=== PATIENT | female | born 1965 | race Caucasian/White ===

== ENCOUNTER 2016-12-15 23:52 | Emergency (ER) | payer OTHER ==
[~2016-12-15] VITALS: Ht 165.1 cm; Wt 68.0 kg
--- NOTE | 2016-12-16 00:32 | ED NECK/BACK PAIN COMPLAINT ---
History of Present Illness General Chief Complaint: General Adult Stated Complaint: RIGHT SIDE BACK PAIN PER PT Vital Signs & Intake/Output Vital Signs & Intake/Output Vital Signs Date Time Temp Pulse Resp B/P Pulse O2 O2 Flow FiO2 Ox Delivery Rate 12/16 34 Room Air 12/17 31 96.5 117 20 178/101 95 Room Air Past History Travel History Traveled to [place] past 21 day No Progress Plan of Care: Orders Procedure Date/time Status THROAT CULTURE W/QUICK STREP 12/17 39 Active URINALYSIS 12/17 39 Active Departure Departure Condition: Stable Referrals: UNKNOWN (PCP/Family) Departure Forms: Customer Survey General Discharge Information
--- NOTE | 2016-12-16 00:42 | ED NECK/BACK PAIN COMPLAINT ---
History of Present Illness General Chief Complaint: General Adult Stated Complaint: RIGHT SIDE BACK PAIN PER PT Source: patient Exam Limitations: no limitations Vital Signs & Intake/Output Vital Signs & Intake/Output Vital Signs Date Time Temp Pulse Resp B/P Pulse O2 O2 Flow FiO2 Ox Delivery Rate 12/16 0114 152/79 12/16 0035 Room Air 12/16 003 96.5 117 20 178/101 95 Room Air Triage Note: PT TO TRIAGE C/O URINARY FREQ AND R FLANK PAIN. PT ALSO C/O PAINFUL GLANDS. Triage Nurses Notes Reviewed? yes Onset: Abrupt Duration: day(s): (few) Timing: recent history Quality/Severity: mild Location: NECK, FLANK PAIN Associated Symptoms: abdominal pain HPI: 51 year old female presents to the ER with multiple complaints. SHe reports throat pain, neck swelling, urinary frequency, flank pain, chills and subjective temperatures. Denies chest pain. She states recently she had blood work done by her PCP and her medications were adjusted. She visits her PCP frequently. Today she was at the gym even though she wasn't feeling well over the last few days but states that she was worried about her glands being swollen. Past History Travel History Traveled to [place] past 21 day No Medical History Any Pertinent Medical History? see below for history Endocrine: hyperthyroidism Surgical History Surgical History: non-contributory Psychosocial History What is your primary language Bengali Tobacco Use: Never used ETOH Use: occasional use Family History Hx Contributory? No Review of Systems Review of Systems Constitutional: Reports: fever (SUBJECTIVE). Denies: chills. Eyes: Denies: blurred vision. Ears, Nose, Throat, Mouth: Denies: ear discharge, mouth pain. Respiratory: Denies: cough, short of breath. Cardiovascular: Denies: chest pain. Gastrointestinal/Abdominal: Reports: abdominal pain. Musculoskeletal: Reports: neck pain (SWELLING). Neurological/Psychological: Reports: anxiety. Denies: headache. Physical Exam Physical Exam General Appearance: well developed/nourished, alert, awake Head: atraumatic, normal appearance Eyes: Bilateral: normal appearance, PERRL, EOMI. Ears, Nose, Throat, Mouth: hearing grossly normal, moist mucous membrane Neck: normal inspection, supple, full range of motion, NO VISIBLE SWELLING NO CAROTID BRUIT Respiratory: normal breath sounds, chest non-tender, no respiratory distress Cardiovascular: regular rate/rhythm Peripheral Pulses: 2+ radial (R), 2+ radial (L) Gastrointestinal: normal bowel sounds, soft, non-tender Back: normal inspection, normal range of motion Extremities: non-tender Neurologic/Psych: no motor/sensory deficits, awake, alert, oriented x 3, ANXIOUS Skin: intact, normal color, warm/dry Progress Differential Diagnosis: PHARYNGITIX, URI, ANXIETY, HYPERTHYROIDISM Plan of Care: Orders Procedure Date/time Status THYROID STIMULATING HORMONE 12/16 41 Active FREE T4 12/16 41 Active COMPREHENSIVE METABOLIC PANEL 12/16 41 Active CBC WITHOUT DIFFERENTIAL 12/16 41 Complete THROAT CULTURE W/QUICK STREP 12/17 39 Active URINALYSIS 12/17 39 Complete Laboratory Tests 12/16/16 0055: Anion Gap 9, Estimated GFR > 60, BUN/Creatinine Ratio 22.2, Glucose 94, Calcium 10.0, Total Bilirubin 0.5, AST 31, ALT 46, Alkaline Phosphatase 67, Total Protein 7.3, Albumin 4.5, Globulin 2.8, Albumin/Globulin Ratio 1.6, TSH Pending, Free T4 Pending, CBC w Diff NO MAN DIFF REQ, RBC 4.89, MCV 87.3, MCH 30.5, RDW 12.3, MPV 9.5, Gran % 59.7, Lymphocytes % 27.5, Monocytes % 8.9, Eosinophils % 3.4, Basophils % 0.5, Absolute Granulocytes 3.9, Absolute Lymphocytes 1.8, Absolute Monocytes 0.6, Absolute Eosinophils 0.2, Absolute Basophils 0, PUBS MCHC 34.9 12/16/16 0048: Urine Color YEL, Urine Clarity CLEAR, Urine pH 6.0, Ur Specific [place] 1.015, Urine Protein NEG, Urine Ketones NEG, Urine Nitrite NEG, Urine Bilirubin NEG, Urine Urobilinogen 0.2, Ur Leukocyte Esterase NEG, Ur Microscopic EXAM NOT REQUIRED, Urine Hemoglobin NEG, Urine Glucose NEG Departure Departure Disposition: HOME OR SELF CARE Condition: Stable Clinical Impression Primary Impression: Right flank pain Referrals: UNKNOWN (PCP/Family) Additional Instructions: Follow up with outpatient renal ultrasound and with your primary care doctor in the office. Departure Forms: Customer Survey General Discharge Information
[2016-12-16 01:16] LABS: ABSOLUTE BASOPHIL COUNT 0 /CUMM (0.0-0.2); ABSOLUTE EOSINOPHIL COUNT 0.2 /CUMM (0.0-0.7); ABSOLUTE GRANULOCYTE CT 3.9 /CUMM (1.4-6.5); ABSOLUTE LYMPH COUNT 1.8 /CUMM (1.2-3.4); ABSOLUTE MONOCYTE COUNT 0.6 /CUMM (0.10-0.60); BASOPHIL % 0.5 % (0.0-2.0); EOSINOPHIL % 3.4 % (0-5); GRANULOCYTE % 59.7 % (42.2-75.2); HEMATOCRIT 42.7 % (37-47); MEAN CORPUSCULAR HGB 30.5 PG (27.0-31.0); MEAN CORPUSCULAR HGB CONC 34.9 G/DL (33.0-37.0); MEAN CORPUSCULAR VOLUME 87.3 FL (81.0-99.0); MEAN PLATELET VOLUME 9.5 FL (7.4-10.4); PLATELET COUNT 212 /CUMM (130-400); RBC DISTRIBUTION WIDTH 12.3 % (11.5-14.5); RED BLOOD CELL CT 4.89 /CUMM (4.20-5.40); WHITE BLOOD CELL COUNT 6.5 /CUMM (4.8-10.8)
[2016-12-16 02:46] VITALS: BP 158/82
== END 2016-12-16 02:47 ==
LOC: ERH 23:52
PROVIDERS: Emergency Medicine
DX: R10.31 Right lower quadrant pain (principal)
CPT/HCPCS: 81003